=== PATIENT | male | born 1965 | race Caucasian/White ===

== ENCOUNTER → 2016-09-27 | Outpatient (CLI) | payer OTHER ==
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
== END ==
LOC: M WUC 15:25
PROVIDERS: ATTEND Physician Assistant
DX: S13.4XXA Sprain of ligaments of cervical spine, initial encounter (principal); S40.012A Contusion of left shoulder, initial encounter; S40.011A Contusion of right shoulder, initial encounter; X58.XXXA Exposure to other specified factors, initial encounter; Y92.89 Other specified places as the place of occurrence of the external cause; Y93.89 Activity, other specified; Y99.8 Other external cause status

== ENCOUNTER → 2017-07-21 | Outpatient (REF) | payer OTHER ==
[2017-07-21 11:01] LABS: HEMATOCRIT 43.5 % (42.0-52.0); HEMOGLOBIN 14.6 g/dl (13.5-17.5); MEAN CORPUSCULAR HEMOGLOBIN 28.9 pg (27.0-33.0); MEAN CORPUSCULAR HGB CONC 33.6 g/dl (32.0-36.5); MEAN CORPUSCULAR VOLUME 86.1 fl (80.0-96.0); PLATELET COUNT, AUTOMATED 244 10^3/uL (150-450); RED BLOOD COUNT 5.05 10^6/uL (4.30-6.10); WHITE BLOOD COUNT 5.8 10^3/uL (4.0-10.0)
[2017-07-21 11:28] LABS: ALBUMIN 3.8 GM/DL (3.2-5.2); ALBUMIN/GLOBULIN RATIO 1.06 (1.00-1.93); ALKALINE PHOSPHATASE 75 U/L (45-117); ALT/SGPT 40 U/L (12-78); ANION GAP 6 MEQ/L (8-16); AST/SGOT 21 U/L (7-37); BILIRUBIN,TOTAL 0.6 MG/DL (0.2-1.0); BLOOD UREA NITROGEN 21 MG/DL (7-18); CALCIUM LEVEL 8.8 MG/DL (8.5-10.1); CARBON DIOXIDE LEVEL 28 MEQ/L (21-32); CHLORIDE LEVEL 107 MEQ/L (98-107); CHOLESTEROL LEVEL 224 MG/DL (<200); CHOLESTEROL RISK RATIO 4.392 (<5); CREATININE FOR GFR 1.09 MG/DL (0.70-1.30); GLOMERULAR FILTRATION RATE > 60.0 (>56); GLUCOSE, FASTING 85 MG/DL (70-100); HDL CHOLESTEROL 51 MG/DL (>40); LDL CHOLESTEROL 137.8 MG/DL (<100); NON-HDL-C 173 MG/DL; POTASSIUM SERUM 4.2 MEQ/L (3.5-5.1); SODIUM LEVEL 141 MEQ/L (136-145); THYROID STIMULATING HORMONE 0.111 uIU/ML (0.358-3.740); TOTAL PROTEIN 7.4 GM/DL (6.4-8.2); TRIGLYCERIDES LEVEL 176 MG/DL (<150)
== END ==
LOC: M LABDRAW1 08:26
DX: G47.33 Obstructive sleep apnea (adult) (pediatric) (principal); E78.00 Pure hypercholesterolemia, unspecified

== ENCOUNTER 2017-11-03 08:26 | Day surgery (SDC) | payer OTHER ==
[2017-11-03] MEDS: NS 1,000 ML IV (09:24)
[2017-11-03] MEDS ORDERED: PROPOFOL 500 MG/50 ML VIAL As Ordered (10:03)
[2017-11-03] MEDS ORDERED: LIDOCAINE 2% INJ 100 MG/5 ML SDV (FOR ANES.) As Ordered (10:03)
== END 2017-11-03 10:47 | disposition home or self-care (01) ==
LOC: M OPP 08:26
DX: Z12.11 Encounter for screening for malignant neoplasm of colon (principal); D12.3 Benign neoplasm of transverse colon; K62.1 Rectal polyp; K64.8 Other hemorrhoids; R00.8 Other abnormalities of heart beat; M19.90 Unspecified osteoarthritis, unspecified site; G47.30 Sleep apnea, unspecified; R06.83 Snoring
CPT/HCPCS: 45385

== ENCOUNTER → 2018-01-08 | Outpatient (CLI) | payer OTHER ==
[2018-01-08 18:15] LABS: ALBUMIN 4.1 GM/DL (3.2-5.2); ALBUMIN/GLOBULIN RATIO 1.05 (1.00-1.93); ALKALINE PHOSPHATASE 84 U/L (45-117); ALT/SGPT 26 U/L (12-78); ANION GAP 7 MEQ/L (8-16); AST/SGOT 19 U/L (7-37); BILIRUBIN,TOTAL 0.5 MG/DL (0.2-1.0); BLOOD UREA NITROGEN 20 MG/DL (7-18); CALCIUM LEVEL 8.8 MG/DL (8.5-10.1); CARBON DIOXIDE LEVEL 29 MEQ/L (21-32); CHLORIDE LEVEL 102 MEQ/L (98-107); CHOLESTEROL LEVEL 236 MG/DL (<200); CHOLESTEROL RISK RATIO 4.068 (<5); CREATININE FOR GFR 1.06 MG/DL (0.70-1.30); FREE T4 0.99 NG/DL (0.76-1.46); GLOMERULAR FILTRATION RATE > 60.0 (>56); GLUCOSE, FASTING 71 MG/DL (70-100); HDL CHOLESTEROL 58 MG/DL (>40); LDL CHOLESTEROL 157 MG/DL (<100); NON-HDL-C 178 MG/DL; POTASSIUM SERUM 4.3 MEQ/L (3.5-5.1); SODIUM LEVEL 138 MEQ/L (136-145); TRIGLYCERIDES LEVEL 103 MG/DL (<150)
[2018-01-11 00:06] LABS: THYROID STIMULATING IMMUNOGLOB <0.10 IU/L (0.00-0.55)
== END ==
LOC: M WUC 15:10
DX: E78.00 Pure hypercholesterolemia, unspecified (principal); R94.6 Abnormal results of thyroid function studies
CPT/HCPCS: 84443

== ENCOUNTER → 2019-09-18 | Outpatient (REF) | payer OTHER ==
[2019-09-18 13:09] LABS: HEMATOCRIT 44.2 % (42.0-52.0); HEMOGLOBIN 14.8 g/dl (13.5-17.5); MEAN CORPUSCULAR HEMOGLOBIN 29.5 pg (27.0-33.0); MEAN CORPUSCULAR HGB CONC 33.5 g/dl (32.0-36.5); MEAN CORPUSCULAR VOLUME 88.2 fl (80.0-96.0); PLATELET COUNT, AUTOMATED 238 10^3/uL (150-450); RED BLOOD COUNT 5.01 10^6/uL (4.30-6.10); WHITE BLOOD COUNT 5.4 10^3/uL (4.0-10.0)
[2019-09-18 13:40] LABS: ALBUMIN 3.8 GM/DL (3.2-5.2); ALT/SGPT 23 U/L (12-78); BILIRUBIN,TOTAL 0.7 MG/DL (0.2-1.0); BLOOD UREA NITROGEN 22 MG/DL (7-18); CALCIUM LEVEL 8.7 MG/DL (8.5-10.1); CARBON DIOXIDE LEVEL 28 MEQ/L (21-32); CHLORIDE LEVEL 105 MEQ/L (98-107); CHOLESTEROL LEVEL 219 MG/DL (<200); CHOLESTEROL RISK RATIO 4.132 (<5); CREATININE FOR GFR 1.05 MG/DL (0.70-1.30); GLOMERULAR FILTRATION RATE > 60.0 (>56); GLUCOSE, FASTING 68 MG/DL (70-100); HDL CHOLESTEROL 53 MG/DL (>40); LDL CHOLESTEROL 144 MG/DL (<100); NON-HDL-C 166 MG/DL; POTASSIUM SERUM 5.1 MEQ/L (3.5-5.1); SODIUM LEVEL 136 MEQ/L (136-145); TESTOSTERONE 402 NG/DL (241-827); TOTAL PROTEIN 7.3 GM/DL (6.4-8.2); TRIGLYCERIDES LEVEL 108 MG/DL (<150)
== END ==
LOC: M SFHCPLAZ 09:56
PROVIDERS: ATTEND Internal Medicine
DX: E78.00 Pure hypercholesterolemia, unspecified (principal); R53.82 Chronic fatigue, unspecified; R94.6 Abnormal results of thyroid function studies; Z12.5 Encounter for screening for malignant neoplasm of prostate

== ENCOUNTER → 2019-10-21 | Outpatient (CLI) | payer OTHER | LOC: M LABSMTC 14:26 | PROVIDERS: ATTEND Family Medicine | DX: Z20.828 Contact with and (suspected) exposure to other viral communicable diseases (principal); Z11.59 Encounter for screening for other viral diseases ==

== ENCOUNTER 2020-05-05 07:17 | Emergency (ER) | payer OTHER ==
[2020-05-05] MEDS ORDERED: NORCO, ANEXSIA 5/325MG TABLET (HYDROcodone/ACETAMINOPHEN) PO ONE (07:45)
--- NOTE | 2020-05-05 08:28 | REP ---
INDICATION: slip and fall, medial pain "felt like it dislocated". COMPARISON: None. TECHNIQUE: Five views are presented. The study does not include a sunrise view. FINDINGS: Five views of the right knee demonstrate patellofemoral osteoarthritic spurring. There is minimal lateral compartment spurring. Joint spaces are preserved.. No fracture or subluxation is seen. No opaque foreign body noted. IMPRESSION: Patellofemoral and lateral compartment osteoarthritic spurring. No fracture seen. The study does not include a sunrise view.. <Electronically signed by Peña Burnett > 05/05/20 [id number]
--- OUTSIDE RECORDS SUMMARY | 2020-05-05 08:49 | CCD | Continuity of Care Document ---
Author Author Vinod MULLEN DPBecky Organization Unknown Address [address] [place] [address] [address] [place] [address] Phone [phone] Problems Active Problems Provider Date Plantar fascial fibromatosis Chadd Mullen DPM Onset: Pronation Chadd Mullen DPM Onset: 02/04/2020 Other synovitis and tenosynovitis, right ankle and foot Andr jonnathan Mullen DPM Onset: 02/04/2020 Social History Type Date Description Comments Sex Unknown ETOH Use Occasionally consumes alcohol Tobacco Use Start: Unknown Patient has never smoked Allergies, Adverse Reactions, Alerts Description No Known Drug Allergies Medications Active Medications SIG Qnty Indications Ordering Provide r Date Voltaren 1% Gel apply to sore ankle 2-3 times 100gm Chadd Mullen DPM 04/01/2020 History Medications No Active Medications Unknown 05/2019 - 04/01/2020 Immunizations Description No Information Available Vital Signs Date Vital Result Comment 02/03/2020 8:08am Height 72 inches 6'0" Weight 210.00 lb BP Systolic 104 mmHg BP Diastolic 72 mmHg Heart Rate 91 /min BMI (Body Mass Index) 28.5 kg/m2 11/11/2016 3:49pm Height 71 inches 5'11" Weight 210.00 lb BP Systolic 118 mmHg BP Diastolic 68 mmHg Heart Rate 70 /min BMI (Body Mass Index) 29.3 kg/m2 Results Description No Information Available Procedures Description No Information Available Medical Devices Description No Information Available Encounters Type Date Location Provider Dx Diagnosis Office Visit 04/01/2020 9:15a [place] Chadd Mullen DPM M65.879 Other synovitis and tenosynovitis, unsp ankle and foot Office Visit 02/03/2020 8:00a [facility] Chadd Mullen, ANNE M21.6x1 Other acquired deformities of right foot M21.6x9 Other acquired deformities o f unspecified foot M21.6x2 Other acquired deformities o f left foot M72.2 Plantar fascial fibromatosis M72.2 Plantar fascial fibromatosis M65.871 Other synovitis and tenosyno vitis, right ankle and foot Assessments Date Code Description Provider 04/01/2020 M65.879 Other synovitis and tenosynovitis, unspecified ankle and foot Chadd Mullen, DPBecky 02/03/2020 M21.6x1 Other acquired deformities of ri ght foot Chadd Mullen, ANNE 02/03/2020 M21.6x9 Other acquired deformities of un specified foot Chadd Mullen, ANNE 02/03/2020 M21.6x2 Other acquired deformities of le ft foot Chadd Mullen, ANNE 02/03/2020 M72.2 Plantar fascial fibromatosis And rew Miriam Mullen, ANNE 02/03/2020 M72.2 Plantar fascial fibromatosis And rew Miriam Mullen, DPBecky 02/03/2020 M65.871 Other synovitis and tenosynoviti s, right ankle and foot Chadd Mullen DPM Plan of Treatment No Information Available Functional Status Description No Information Available Mental Status Description No Information Available Referrals Description No Information Available
--- OUTSIDE RECORDS SUMMARY | 2020-05-05 08:49 | CCD | Continuity of Care Document ---
Author Author Vinod COLLAZO PA-C Organization Unknown Address [address] [place] [address] Phone [phone] Care Team Providers Care Tree Puller Name Role Phone Segundo Rossi AUTM [phone] Mykel Ramirez MD AUTM [phone] Problems Description No Information Available Social History Type Date Description Comments Sex Unknown ETOH Use Occasionally consumes alcohol Tobacco Use Start: Unknown Patient has never smoked Allergies, Adverse Reactions, Alerts Description No Known Drug Allergies Medications Active Medications SIG Qnty Indications Ordering Provide r Date Euflexxa 20mg/2ML Soln Prefill Syr juaquin chu knee euflexxa #1 03/11/2020 klf/chely chu knee #2 03/18/2020 klf/bc, chu knee #3 03/30/2020 klf/chely Chadd Lopez MD 020 Euflexxa 20mg/2ML Soln Prefill Syr juaquin chu knee #1 07/13/18 klf/cp chu knee 07/24/18 klf/rs, chu knee #3 klf/ng 08/01/18. Mauricio Cortez MD 07/13/2018 Immunizations Description No Information Available Vital Signs Date Vital Result Comment 03/18/2020 3:34pm Body Temperature 96.6 F 02/07/2020 3:34pm Body Temperature 96.8 F Results Description No Information Available Procedures Date Code Description Status 03/30/2020 Inject/Drain Joint/Bursa Major C ompleted 03/18/2020 Inject/Drain Joint/Bursa Major C ompleted 03/18/2020 Inject/Drain Joint/Bursa Major C ompleted 03/11/2020 Inject/Drain Joint/Bursa Major C ompleted 03/11/202095300 Inject/Drain Joint/Bursa Major C ompleted 02/07/2020 94355 X-Ray Knee Complete W/Obliques & Tunnel And/Or Standing Views Completed 02/07/2020 04566 X-Ray Knee Complete W/Obliques & Tunnel And/Or Standing Views Completed Medical Devices Description No Information Available Encounters Type Date Location Provider Dx Diagnosis Office Visit 03/30/2020 2:00[place] Kaelyn L. Frankie PA-C M17.0 Bilateral primary osteoarthritis of knee Office Visit 03/18/2020 3:15p [place] Kaelyn L. Frankie PA-C M17.0 Bilateral primary osteoarthritis of knee Office Visit 03/11/2020 3:15p [place] Kaelyn L. Frankie PA-C M17.0 Bilateral primary osteoarthritis of knee Office Visit 02/07/2020 3:15p [place] Kaelyn L. Frankie PA-C M17.0 Bilateral primary osteoarthritis of knee Assessments Date Code Description Provider 03/30/2020 M17.0 Bilateral primary osteoarthritis of knee Kaelyn L. Frankie PA-C 03/18/2020 M17.0 Bilateral primary osteoarthritis of knee Kaelyn L. Frankie PA-C 03/11/2020 M17.0 Bilateral primary osteoarthritis of knee Kaelyn L. Frankie PA-C 02/07/2020 M17.0 Bilateral primary osteoarthritis of knee Kaelyn L. Frankie PA-C Plan of Treatment No Information Available Functional Status Description No Information Available Mental Status Description No Information Available Referrals Refer to Dr Reason for Referral Status Appt Date Kaelyn Collazo PA-C Bilateral knee Euflexxa-no a uthorization req per Jolynn Ref# [id number] Created [address] [facility] [address] [place] [address] [phone]
--- OUTSIDE RECORDS SUMMARY | 2020-05-05 08:49 | CCD | Continuity of Care Document ---
Author Author Vinod COLLAZO PA-C Organization Unknown Address [address] [place] [address] Phone [phone] Care Team Providers Care Targeteer Name Role Phone Segundo Rossi AUTM [phone] Mykel Ramirez MD AUTM [phone] Problems Description No Information Available Social History [...] ompleted 03/11/2020 Inject/Drain Joint/Bursa Major C ompleted 03/11/202002086 Inject/Drain Joint/Bursa Major C ompleted 02/07/2020 03290 X-Ray Knee Complete W/Obliques & Tunnel And/Or Standing Views Completed 02/07/2020 27958 X-Ray Knee Complete W/Obliques & Tunnel And/Or Standing Views Completed Medical Devices Description No Information Available Encounters Type Date Location Provider Dx Diagnosis Office Visit 03/30/2020 2:00p [place] Kaelyn L. Frankie PA-C M17.0 Bilateral primary osteoarthritis of knee Office Visit 03/18/2020 3:15p [place] Kaelyn L. Frankie PA-C M17.0 Bilateral primary osteoarthritis of knee Office Visit 03/11/2020 3:15p [place] Kaelyn L. Frankie PA-C M17.0 Bilateral primary osteoarthritis of knee Office Visit 02/07/2020 3:15p [place] Kaelyn L. Frankie PA-C M17.0 Bilateral primary osteoarthritis of knee Assessments Date Code Description Provider 03/30/2020 M17.0 Bilateral primary osteoarthritis of knee Kaelyn L. Frankie, PA-C 03/18/2020 M17.0 Bilateral primary osteoarthritis of knee Kaelyn L. Frankie PA-C 03/11/2020 M17.0 Bilateral primary osteoarthritis of knee Kaelyn L. Frankie PA-C 02/07/2020 M17.0 Bilateral primary osteoarthritis of knee Kaelyn L. Frankie PA-C Plan of Treatment Future Appointment(s):* 04/01/2020 3:00 pm - Kaelyn Collazo PA-C at [place] Functional Status Description No Information Available Mental Status Description No Information Available Referrals Refer to Reason for Referral Status Appt Date Kaelyn Collazo PA-C Bilateral knee Euflexxa-no a uthorization req per Jolynn Ref# [id number] Created [address] [place] [address] [address] [place] [address] [phone]
--- OUTSIDE RECORDS SUMMARY | 2020-05-05 08:50 | CCD ---
Author Author [facility] Organization [facility] Address Unknown Phone Unavailable Care Team Providers Care Automobile Service Writer Name Role Phone Mykel Ramirez Unavailable PROBLEMS Type Condition ICD9-CM Code MAH26-CQ Code Onset Dates Condition S tatus SNOMED Code Notes Problem History of adenomatous polyp of colon Z86.010 Ac tive 102541045 He had adenomatous polyps in November 2017 and a 5 year follow-up is likely to occur. Problem Chronic fatigue R53.82 Active 36697745 He has some fatigue and erectile dysfunction. Testosterone level is ordered and normal. PDE 5 inhibitor was prescribed. Problem Dyshidrotic eczema L30.1 Active 465873077 He has dyshidrotic eczema of the feet and I recommended triamcinolone cream in the past. Assistant Center Manager has diagnosed it as a fungal infection and he is on therapy with Lamisil intermittently, apparently. Problem Obstructive sleep apnea G47.33 Active 87352815 On CPAP +6cm H2O since 04/2011--has had tremendous benefit from this. Problem Hypercholesterolemia E78.00 Active 69550781 Li pids have been suboptimally controlled in the past, and remain suboptimally controlled as of September 2019. A radionuclide stress test was normal in June 2013. ACC cardiovascular calculator was performed on his 2017 values--less than 4% 10-year risk. He is going to work on diet and exercise in that regard. Problem Low TSH level R94.6 Active 972409752 He has a history of a prior low TSH. He is not symptomatic. This was rechecked in January 2018 and again in September 2019 and his thyroid function tests were normal. ALLERGIES No Known Allergies ENCOUNTERS from 1965 to 2020-02-11 Encounter Location Date Provider Diagnosis [facility] [place] [address] [place] [address] Jan, Mykel Ramirez IMMUNIZATIONS Vaccine Route Administration Date Status TD Adult 0.5mL (Tetanus) Unknown Feb 10, 2004 Adminis tered SOCIAL HISTORY Tobacco Use: Social History Observation Description Date Details (start date - stop date) Never Smoker Sex Assigned At : Social History Observation Description Sex Assigned At Unknown Education: Question Answer Notes Level of Education: Professional Schools/Masters/PhD Audit Question Answer Notes Interpretation: Alcohol Education Total Score: 2 Language: Question Answer Notes Languages spoken: Surinamese Nondenominational: Question Answer Notes Nondenominational No spiritism beliefs that would impact health care. Sexual Hx: Question Answer Notes Had sex in the last 12 months (vaginal, oral, or anal)? Yes Have you ever had an STD? No with Women only Drug and Alcohol Question Answer Notes Total Score: 0 Interpretation: No problems reported Alcohol Screening: Question Answer Notes Did you have a drink containing alcohol in the past year? Ye s Points 2 Interpretation Negative How often did you have six or more drinks on one occas ion in the past year? Never (0 points) How many drinks did you have on a typica l day when you were drinking in the past year? 1 or 2 (0 points) How often did you have a drink containing alcohol in t he past year? Two to four times a month (2 points) BMI Care Goal Follow-Up Question Answer Notes Above Normal BMI Follow-Up Giving encouragement to exercise Tobacco Use: Question Answer Notes Are you a: never smoker never smoker REASON FOR REFERRAL No Information VITAL SIGNS No information MEDICATIONS Medication SIG (Take, Route, Frequency, Duration) Start Date En d Date Status Triamcinolone Acetonide 0.1 % 1 application to rash on feet Externally Twice a day for 90 day(s) Jul, Active Sildenafil Citrate 100 MG 1 tablet as needed Orally Once a d ay for 10 days Sep, Active PROCEDURES No Information RESULTS No Results REASON FOR VISIT PA sildenafil 100mg tab MEDICAL (GENERAL) HISTORY Type Description Date Medical History Hypercholesterolemia Medical History Obstructive sleep apnea Medical History Dyshidrotic eczema Medical History History of adenomatous polyp of colon Surgical History Appendectomy 01/1999 Surgical History Vasectomy 2010 Surgical History Colonoscopy--adenomatous polyps Hospitalization History [facility]-Chest congestion 06/29/2017 Goals Section No Information Health Concerns No Information MEDICAL EQUIPMENT No Information MENTAL STATUS No Information FUNCTIONAL STATUS No Information ASSESSMENTS No Information PLAN OF TREATMENT Medication Medication Name Sig Start Date Stop Date Triamcinolone Acetonide 0.1 % 1 application to rash on feet Externally Twice a day for 90 day(s) Jul, Sildenafil Citrate 100 MG 1 tablet as needed Orally Once a d ay for 10 days Sep, Next Appt Details Provider Name:Mykel Ramirez, 2020-10-07 07 :30:00 AM, [address] [place] [address], [phone], Insurance Providers Payer Name Payer Address Payer Phone Insured Name Patient Relati onship to Insured Coverage Start Date Coverage End Date [facility] [address] [facility] [phone] EZIO HOWE
--- OUTSIDE RECORDS SUMMARY | 2020-05-05 08:50 | CCD | Continuity of Care Document ---
Author Author Vinod COLLAZO PA-C Organization Unknown Address [address] [place] [address] Phone [phone] Care Team Providers Care Senior Sharepoint Architect Name Role Phone Segundo Rossi AUTM [phone] Mykel Ramirez MD AUTM [phone] Problems Description No Information Available Social History [...] Available Vital Signs Date Vital Result Comment 02/07/2020 3:34pm Body Temperature 96.8 F 01/05/2017 8:18am Body Temperature 97.7 F Height 71 inches 5'11" Weight 216.00 lb BMI (Body Mass Index) 30.1 kg/m2 Results Description No Information Available Procedures Date Code Description Status 02/07/2020 64860 X-Ray Knee Complete W/Obliques & Tunnel And/Or Standing Views Completed 02/07/2020 05668 X-Ray Knee Complete W/Obliques & Tunnel And/Or Standing Views Completed Medical Devices Description No Information Available Encounters Type Date Location Provider Dx Diagnosis Office Visit 02/07/2020 3:15p [place] Kaelyn Collazo PA-C M17.0 Bilateral primary osteoarthritis of knee Assessments Date Code Description Provider 02/07/2020 M17.0 Bilateral primary osteoarthritis of knee Kaelyn Collazo PA-C Plan of Treatment Future Appointment(s):* 02/14/2020 2:30 pm - Louise Tee MD at [place] 02/07/2020 - Kaelyn Collazo PA-C* M17.0 Bilateral primary osteoarthritis of knee * New Orders:* Euflexxa Chu Knee Injection, Ordered: 02/07/20 * Follow up:* prn Functional Status Description No Information Available Mental Status Description No Information Available Referrals Description No Information Available
--- OUTSIDE RECORDS SUMMARY | 2020-05-05 08:50 | CCD | Continuity of Care Document ---
Author Author Vinod COLLAZO PA-C Organization Unknown Address [address] [place] [address] Phone [phone] Care Team Providers Care Lab Manager Name Role Phone Segundo Rossi AUTM [phone] Mykel Ramirez MD AUTM [phone] Problems Description No Information Available Social History Type Date Description Comments Sex Unknown ETOH Use Occasionally consumes alcohol Tobacco Use Start: Unknown Patient has never smoked Allergies, Adverse Reactions, Alerts Description No Known Drug Allergies Medications Active Medications SIG Qnty Indications Ordering Provide r Date Euflexxa 20mg/2ML Soln Prefill Syr juaquin chu knee euflexxa #1 03/11/2020 klf/chely Kris Collazo MD 03/11/2020 Euflexxa 20mg/2ML Soln Prefill Syr juaquin chu [...] Information Available Procedures Date Code Description Status 03/11/2020 Inject/Drain Joint/Bursa Major C ompleted 02/07/2020 32460 X-Ray Knee Complete W/Obliques & Tunnel And/Or Standing Views Completed 02/07/2020 74888 X-Ray Knee Complete W/Obliques & Tunnel And/Or Standing Views Completed Medical Devices Description No Information Available Encounters Type Date Location Provider Dx Diagnosis Office Visit 03/11/2020 3[place] Collazo M17.0 Bilateral primary osteoarthritis of knee Office Visit 02/07/2020 3[place] Collazo M17.0 Bilateral primary osteoarthritis of knee Assessments Date Code Description Provider 03/11/2020 M17.0 Bilateral primary osteoarthritis of knee Kaelyn Hopkins RICHARD Collazo 02/07/2020 M17.0 Bilateral primary osteoarthritis of knee Kaelyn L. RICHARD Collazo Plan of Treatment No Information Available Functional Status Description No Information Available Mental Status Description No Information Available Referrals Refer to Dr Reason for Referral Status Appt Date Kaelyn Collazo PA-C Bilateral knee Euflexxa-no a uthorization req per Jolynn Ref# [id number] Created [address] [facility] [address] [place] [address] [phone]
--- OUTSIDE RECORDS SUMMARY | 2020-05-05 08:50 | CCD | Continuity of Care Document ---
Author Author Vinod COLLAZO PA-C Organization Unknown Address [address] [place] [address] Phone [phone] Care Team Providers Care Department Coordinator Name Role Phone Segundo Rossi AUTM [phone] Mykel Ramirez MD AUTM [phone] Problems Description No Information Available Social History Type Date Description Comments Sex Unknown ETOH Use Occasionally consumes alcohol Tobacco Use Start: Unknown Patient has never smoked Allergies, Adverse Reactions, Alerts Description No Known Drug Allergies Medications Active Medications SIG Qnty Indications Ordering Provide r Date Euflexxa 20mg/2ML Soln Prefill Syr juaquin chu knee euflexxa #1 03/11/2020 klf/chely chu knee #2 03/18/2020 klf/bc Chadd Lopez MD 03/11/2020 Euflexxa 20mg/2ML Soln Prefill Syr juaquin chu knee #1 07/13/18 klf/cp chu knee 07/24/18 klf/rs, chu knee #3 klf/ng 08/01/18. Mauricio Cortez MD 07/13/2018 Immunizations Description No Information Available Vital Signs Date Vital Result Comment 03/18/2020 3:34pm Body Temperature 96.6 F 02/07/2020 3:34pm Body Temperature 96.8 F Results Description No Information Available Procedures Date Code Description Status 03/18/2020 Inject/Drain Joint/Bursa Major C ompleted 03/11/2020 Inject/Drain Joint/Bursa Major C ompleted 03/11/2020 Inject/Drain Joint/Bursa Major C ompleted 02/07/2020 11887 X-Ray Knee Complete W/Obliques & Tunnel And/Or Standing Views Completed 02/07/2020 15020 X-Ray Knee Complete W/Obliques & Tunnel And/Or Standing Views Completed Medical Devices Description No Information Available Encounters Type Date Location Provider Dx Diagnosis Office Visit 03/18/2020 3:15p [place] Kaelyn Bustos. Frankie PA-C M17.0 Bilateral primary osteoarthritis of knee Office Visit 03/11/2020 3:15p [place] Kaelyn L. Frankie PA-C M17.0 Bilateral primary osteoarthritis of knee Office Visit 02/07/2020 3:15p [place] Kaelyn Bustos. Frankie PA-C M17.0 Bilateral primary osteoarthritis of knee Assessments Date Code Description Provider 03/18/2020 M17.0 Bilateral primary osteoarthritis of knee Kaelyn L. Frankie PA-C 03/11/2020 M17.0 Bilateral primary osteoarthritis of knee Kaelyn L. Frankie PA-C 02/07/2020 M17.0 Bilateral primary osteoarthritis of knee Kaelyn L. Frankie, PA-C Plan of Treatment Future Appointment(s):* 04/01/2020 3:00 pm - Kaelyn Collazo PA-C at [place] * 03/30/2020 2:00 pm - Kaelyn Collazo PA-C at [place] Functional Status Description No Information Available Mental Status Description No Information Available Referrals Refer to Dr Reason for Referral Status Appt Date Kaelyn Collazo PA-C Bilateral knee Euflexxa-no a uthorization req per Jolynn Ref# [id number] Created [facility] [address] [place] [address] [phone]
--- OUTSIDE RECORDS SUMMARY | 2020-05-05 08:50 | CCD ---
Continuity of Care Document (CCD) Created on: 02/19/2020 DuncanJaleelnorman Bustos External Reference #: [id number] : [id number] Sex: Male Author Author Vinod COLLAZO PA-C Organization Unknown Address [address] [place] [address] Phone [phone] Care Team Providers Care Fermentologist Name Role Phone Segundo Rossi AUTM [phone] Mykel Ramirez MD AUTM [phone] Problems Description No Information Available Social History [...] Available Procedures Date Code Description Status 02/07/2020 24751 X-Ray Knee Complete W/Obliques & Tunnel And/Or Standing Views Completed 02/07/2020 78515 X-Ray Knee Complete W/Obliques & Tunnel And/Or Standing Views Completed Medical Devices Description No Information Available Encounters Type Date Location Provider Dx Diagnosis Office Visit 02/07/2020 3:15p [place] Kaelyn Collazo PA-C M17.0 Bilateral primary osteoarthritis of knee Assessments Date Code Description Provider 02/07/2020 M17.0 Bilateral primary osteoarthritis of knee Kaelyn Collazo PA-C Plan of Treatment Future Appointment(s):* 03/11/2020 3:15 pm - Kaelyn Collazo PA-C at [place] 02/07/2020 - Kaelyn Collazo PA-C* M17.0 Bilateral primary osteoarthritis of knee * Follow up:* prn Functional Status Description No Information Available Mental Status Description No Information Available Referrals Refer to Dr Reason for Referral Status Appt Date Kaelyn Collazo PA-C Bilateral knee Euflexxa-no a uthorization req per Jolynn Ref# [id number] Created [address] [facility] [address] [place] [address] [phone]
--- OUTSIDE RECORDS SUMMARY | 2020-05-05 08:50 | CCD ---
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 13 2019 6:20PM EST (Author) Name Value Range Interpretation Code Description Data Brenda rce(s) Supporting Document(s) ID Date Data Source [id number] 10/21/2019 01:00:00 PM EDT [facility] Name Value Range Interpretation Code Description Data Brenda rce(s) Supporting Document(s) SARS coronavirus 2 RNA [facility] This lab was ordered by [facility] and reported by [facility]. ID Date Data Source [id number] 07/01/2019 11:10:34 AM EDT [facility] PCName: Kellen AlvaresOB: 1965Provider: Aristeo Suero: 07/01/2019 Results/DataXRays were ordered, obtained and interpreted today in the office. Indication: pain/dysfunction. Side: Right Site: Ankle Views: 3 Views AP/Lateral, Mortise Findings: no new fractures or dislocations, the joint remains reduced, No signs of charcot, deformity or event. Assessment 1. Right ankle pain (719.47) (M25.571) Plan 1. X-Ray I Ankle - 3 views (XRays were ordered, obtained and interpreted today in the office. Indication: pain/dysfunction.); Status:Complete; Done: 01Jul2019 Perform:SOS22; Due:47Fam2312; Last Updated By:Sara Richey; 07/01/2019 10:23:21 AM;Ordered; For:Right ankle pain; Ordered By:Armin Suero;Weight Bearing Status : Weight bearingLaterality: : Right AssessmentRight peroneal tendinitisRight lateral ankle painTeacher, graduate of [employer] reports pain, really over the last 2-3 months. He feels that it may have been related to overdoing it. 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 However his bilateral knee symptoms have become more significant over the last 2-3 months. Aching throbbing. Worse with standing weightbearing. Better with inversion, and level ground. Nothing makes it all the way better. He's been less active, during the [place] virus situation, and in general feels quite a bit better.On exam, he is tender over the peroneal tendons. There is fullness there. His tenderness is maximal, just distal to the lateral malleolus. He has [address] out [address] rength. No instability of his ankle, more the peroneal tendons.I believe he has peroneal tendinitis. There may be a chance of a tear, or degenerative tearing, given his story and history. I see no sign of stress fracture by x-ray, or anything that needs urgent intervention.I recommend conservative management at present,I discussed with the patient the importance of low-impact exercise to minimize foot and ankle related pain. This involves activity that does not include repetitive heel strike and repetitive loading/stress which tends to magnify and exacerbate foot and ankle pain. I recommend, in general, biking, stationary, recumbent, swimming, rowing, elliptical training as a general rule. Running, jumping, and excessive walking may exacerbate foot and ankle pain and discomfort.Hopefully this settles down over the next 2 or 3 months one we are all less busy. However, if he still has pain, hasn't improved over the course of the next 2 or 3 months, then I recommend an MRI of his ankle to assess the peroneal tendons.I offered him a cortisone shot, but he doesn't like needles, so we'll defer on that. He reports he has modified activities, taken Tylenol and/or growth in, and at present is going to nurse things along and see how he does. Signatures Electronically signed by : Armin Suero M.D.; Jul 01 2019 11:10AM EST (Author) Name Value Range Interpretation Code Description Data Brenda rce(s) Supporting Document(s) Procedure Social History Code Duration Value Status Description Data Source(s ) Smoking 09/18/2019 12:00:00 AM EDT Never Smoker completed Never S moker eCW1 ([facility]) Smoking 09/18/2019 12:00:00 AM EDT Never Smoker completed Never S moker eCW1 ([facility]) Smoking 08/22/2019 12:00:00 AM EDT Patient has never smoked co mpleted Patient has never smoked MEDENT ([facility], ) Vital Signs ID Date Data Source UNK Name Value Range Interpretation Code Description Data Source(s) Body temperature 96.6 [degF] 96.6 [degF] MEDENT ([facility]) Body temperature 96.8 [degF] 96.8 [degF] MEDENT ([facility]) Systolic blood pressure 104 mm[Hg] 104 mm[Hg] M EDENT ([facility] Body weight 210.00 [lb_av] 210.00 [lb_av] MEDEN T ([facility] Body height 72 [in_i] 72 [in_i] MEDENT ([facility] 6'0" Body mass index (BMI) [Ratio] 28.5 kg/m2 28.5 k g/m2 [facility] ([facility] Heart rate 91 /min 91 /min [facility] ([facility] Diastolic blood pressure 72 mm[Hg] 72 mm[Hg] MED[facility] ([facility] Body weight 98.942 kg 98.942 kg MEDENT ([facility], ) Body mass index (BMI) [Ratio] 31.3 kg/m2 31.3 k g/m2 [facility] Body weight 218.12 [lb_av] 218.12 [lb_av] KAYLA T ([facility]) Body height 70 [in_i] 70 [in_i] [facility] ([facility]) 5'10" Body temperature 98.4 [degF] 98.4 [degF] [facility] ([facility]) Oxygen saturation in Arterial blood by Pulse oximetry 97 % 97 % [facility] ([facility]) Heart rate 73 /min 73 /min [facility] ([facility]) Diastolic blood pressure 74 mm[Hg] 74 mm[Hg] [facility] ([facility]) Systolic blood pressure 118 mm[Hg] 118 mm[Hg] M [facility] ([facility]) Patient Treatment Plan of Care Planned Activity Planned Date Details Description Data Source (s) sildenafil 100 MG Oral Tablet 09/18/2019 12:00:00 AM EDT eCW1 ([facility]) sildenafil 100 MG Oral Tablet 09/18/2019 12:00:00 AM EDT eCW1 ([facility])
--- OUTSIDE RECORDS SUMMARY | 2020-05-05 08:50 | CCD | Continuity of Care Document ---
Author Author Vinod COLLAZO PA-C Organization Unknown Address [address] [place] [id number] Phone [phone] Care Team Providers Care Risk Adjustment Specialist Name Role Phone Segundo Rossi AUTM [phone] Mykel Ramirez MD AUTM [phone] Problems Description No Information Available Social History [...] Status 03/11/2020 Inject/Drain Joint/Bursa Major C ompleted 03/11/2020 Inject/Drain Joint/Bursa Major C ompleted 02/07/2020 32454 X-Ray Knee Complete W/Obliques & Tunnel And/Or Standing Views Completed 02/07/2020 79904 X-Ray Knee Complete W/Obliques & Tunnel And/Or Standing Views Completed Medical Devices Description No Information Available Encounters Type Date Location Provider Dx Diagnosis Office Visit 03/11/2020 3:15p [facility] Kaelyn Collazo PA-C M17.0 Bilateral primary osteoarthritis of knee Office Visit 02/07/2020 3:15p [facility] Kaelyn Collazo PA-C M17.0 Bilateral primary osteoarthritis of knee Assessments Date Code Description Provider 03/11/2020 M17.0 Bilateral primary osteoarthritis of knee Kaelyn Collazo PA-C 02/07/2020 M17.0 Bilateral primary osteoarthritis of knee Kaelyn Collazo PA-C Plan of Treatment Future Appointment(s):* 04/01/2020 3:00 pm - Kaelyn Collazo PA-C at [facility] * 03/30/2020 2:00 pm - Kaelyn Collazo PA-C at [facility] Functional Status Description No Information Available Mental Status Description No Information Available Referrals Refer to Dr Reason for Referral Status Appt Date Kaelyn Collazo PA-C Bilateral knee Euflexxa-no a uthorization req per Jol[facility] Ref# [id number] Created [address] [facility] [address] [place] [address] [phone]
[2020-05-05 08:51] VITALS: BP 130/85
== END 2020-05-05 09:00 | disposition home or self-care (01) ==
LOC: M ED 07:17 → EDBD 07:17 → M ED 09:00
DX: S89.91XA Unspecified injury of right lower leg, initial encounter (principal); W00.0XXA Fall on same level due to ice and snow, initial encounter; Y92.018 Other place in single-family (private) house as the place of occurrence of the external cause; I48.91 Unspecified atrial fibrillation; G47.33 Obstructive sleep apnea (adult) (pediatric)

== ENCOUNTER 2020-08-27 16:00 | Outpatient (RCR) | payer OTHER | END 2020-08-31 | LOC: M PT 16:00 | PROVIDERS: ATTEND Orthopaedic Surgery | DX: M25.561 Pain in right knee (principal) ==

== ENCOUNTER 2020-09-17 15:15 | Outpatient (RCR) | payer OTHER | END 2020-09-30 | LOC: M PT 15:15 | PROVIDERS: ATTEND Orthopaedic Surgery | DX: M25.561 Pain in right knee (principal); S86.811D Strain of other muscle(s) and tendon(s) at lower leg level, right leg, subsequent encounter; X58.XXXD Exposure to other specified factors, subsequent encounter ==

== ENCOUNTER 2020-10-29 15:12 | Outpatient (RCR) | payer OTHER | END 2020-10-31 | LOC: M PT 15:12 | PROVIDERS: ATTEND Orthopaedic Surgery | DX: M25.561 Pain in right knee (principal) ==

== ENCOUNTER → 2022-04-12 | Outpatient (CLI) | payer OTHER ==
[2022-04-12 09:38] LABS: HEMATOCRIT 48.5 % (42.0-52.0); HEMOGLOBIN 16.3 g/dl (13.5-17.5); MEAN CORPUSCULAR HEMOGLOBIN 29.7 pg (27.0-33.0); MEAN CORPUSCULAR HGB CONC 33.6 g/dl (32.0-36.5); MEAN CORPUSCULAR VOLUME 88.5 fl (80.0-96.0); PLATELET COUNT, AUTOMATED 247 10^3/uL (150-450); RED BLOOD COUNT 5.48 10^6/uL (4.30-6.10)
[2022-04-12 10:10] LABS: FREE T4 1.25 NG/DL (0.89-1.76); THYROID STIMULATING HORMONE 2.596 uIU/ML (0.55-4.78)
[2022-04-12 10:14] LABS: TOTAL 25(OH) VITAMIN D 25.1 NG/ML (20.0-100.0); VITAMIN B12 LEVEL 581 PG/ML (211-911)
[2022-04-12 10:19] LABS: ALBUMIN 4.3 G/DL (3.2-5.2); ALKALINE PHOSPHATASE 82 U/L (46-116); ALT/SGPT 25 U/L (7.0-40); AST/SGOT 25 U/L (<34); BILIRUBIN,TOTAL 0.6 MG/DL (0.3-1.2); BLOOD UREA NITROGEN 29 MG/DL (9-23); CALCIUM LEVEL 9.2 MG/DL (8.5-10.1); CARBON DIOXIDE LEVEL 28 MMOL/L (20-31); CHLORIDE LEVEL 104 MMOL/L (98-107); CHOLESTEROL LEVEL 244 MG/DL (<200); CHOLESTEROL RISK RATIO 4.62 (<5); CREATININE FOR GFR 1.04 MG/DL (0.70-1.30); GLOMERULAR FILTRATION RATE > 60.0 (>56); GLUCOSE, FASTING 79 MG/DL (60-100); HDL CHOLESTEROL 52.7 MG/DL (>40); LDL CHOLESTEROL 169.9 MG/DL (<100); NON-HDL-C 191 MG/DL; POTASSIUM SERUM 4.5 MMOL/L (3.5-5.1); SODIUM LEVEL 139 MMOL/L (136-145); TOTAL PROTEIN 7.4 G/DL (5.7-8.2); TRIGLYCERIDES LEVEL 107 MG/DL (<150)
[2022-04-12 10:22] LABS: CREATININE, URINE 305.1 MG/DL; MAU/CREAT RATIO 3.6 MCG/MG (0.0-30.0)
[2022-04-12 11:09] LABS: C REACTIVE PROTEIN QUANTITATIV < 0.40 MG/DL (<1.0)
== END ==
LOC: M WUC 08:31
PROVIDERS: ATTEND Internal Medicine Hematology
DX: E78.00 Pure hypercholesterolemia, unspecified (principal); Z12.5 Encounter for screening for malignant neoplasm of prostate
CPT/HCPCS: 36415; 80053; 80061; 82043; 82306; 82607; 83036; 84439; 84443; 85027; 86140; G0103

== ENCOUNTER 2022-05-02 06:53 | Outpatient (RCR) | payer OTHER | END 2022-05-03 | LOC: M PT 06:53 | PROVIDERS: ATTEND Internal Medicine Hematology | DX: M54.42 Lumbago with sciatica, left side (principal) ==

== ENCOUNTER 2023-02-27 06:56 | Day surgery (SDC) | payer OTHER ==
[~2023-02-27] VITALS: Ht 180.3 cm; Wt 104.0 kg
[~2023-02-27 06:56] MED LIST: NS 1,000 ML IV ONE
[2023-02-27] MEDS ORDERED: LIDOCAINE 2% 100MG/5ML SDV (FOR ANES.) As Ordered ONE (08:46)
[2023-02-27] MEDS ORDERED: propofoL 200 MG/20 ML VIAL As Ordered ONE ×2 (08:46→08:56)
[2023-02-27 09:27] VITALS: BP 135/95; O2SAT 99
== END 2023-02-27 09:36 | disposition home or self-care (01) ==
LOC: M OPP 06:56
PROVIDERS: ATTEND Internal Medicine Gastroenterology
DX: Z86.010 Personal history of colon polyps (principal); K63.5 Polyp of colon; K64.8 Other hemorrhoids; G47.30 Sleep apnea, unspecified; M19.90 Unspecified osteoarthritis, unspecified site

== ENCOUNTER → 2023-06-01 | Outpatient (REF) | payer OTHER | LOC: M SFHCPLAZ 12:44 | PROVIDERS: ATTEND Physician Assistant Medical | DX: J06.9 Acute upper respiratory infection, unspecified (principal) ==

== ENCOUNTER 2023-08-29 08:25 | Outpatient (RCR) | payer OTHER | END 2023-09-01 | LOC: M PT 08:25 | PROVIDERS: ATTEND Internal Medicine Hematology | DX: M54.50 Low back pain, unspecified (principal) ==

== ENCOUNTER 2023-09-19 07:00 | Outpatient (RCR) | payer OTHER | END 2023-10-01 | LOC: M PT 07:00 | PROVIDERS: ATTEND Internal Medicine Hematology | DX: M54.50 Low back pain, unspecified (principal) ==

== ENCOUNTER → 2023-09-20 | Outpatient (CLI) | payer OTHER ==
[2023-09-20 15:16] LABS: ALBUMIN 3.7 G/DL (3.2-5.2); ALKALINE PHOSPHATASE 86 U/L (46-116); ALT/SGPT 28 U/L (7.0-40); AST/SGOT 19 U/L (<34); BILIRUBIN,TOTAL 0.5 MG/DL (0.3-1.2); BLOOD UREA NITROGEN 22 MG/DL (9-23); CALCIUM LEVEL 9.2 MG/DL (8.5-10.1); CARBON DIOXIDE LEVEL 28 MMOL/L (20-31); CHLORIDE LEVEL 104 MMOL/L (98-107); CREATININE FOR GFR 1.16 MG/DL (0.70-1.30); GLOMERULAR FILTRATION RATE > 60.0 (>56); GLUCOSE, FASTING 76 MG/DL (60-100); POTASSIUM SERUM 4.4 MMOL/L (3.5-5.1); SODIUM LEVEL 138 MMOL/L (136-145); TOTAL PROTEIN 7.3 G/DL (5.7-8.2)
== END ==
LOC: M PLALAB 12:25
PROVIDERS: ATTEND Physician Assistant Medical
DX: R19.7 Diarrhea, unspecified (principal)

== ENCOUNTER → 2024-03-07 | Outpatient (CLI) | payer OTHER ==
[2024-03-07 10:30] LABS: HEMATOCRIT 46.3 % (42.0-52.0); HEMOGLOBIN 15.6 g/dl (13.5-17.5); MEAN CORPUSCULAR HEMOGLOBIN 29.5 pg (27.0-33.0); MEAN CORPUSCULAR HGB CONC 33.7 g/dl (32.0-36.5); MEAN CORPUSCULAR VOLUME 87.7 fl (80.0-96.0); PLATELET COUNT, AUTOMATED 212 10^3/uL (150-450); RED BLOOD COUNT 5.28 10^6/uL (4.30-6.10); WHITE BLOOD COUNT 5.8 10^3/uL (4.0-10.0)
== END ==
LOC: M PLALAB 08:50
PROVIDERS: ATTEND Physician Assistant Medical
DX: J06.9 Acute upper respiratory infection, unspecified (principal)

== ENCOUNTER → 2024-03-11 | Outpatient (CLI) | payer OTHER | LOC: M WUC 11:19 | PROVIDERS: ATTEND Student in an Organized Health Care Education/Training Program | DX: R05.9 Cough, unspecified (principal) ==

== ENCOUNTER → 2024-03-25 | Outpatient (CLI) | payer OTHER | LOC: M WUC 09:01 | PROVIDERS: ATTEND Nurse Practitioner Family | DX: R91.8 Other nonspecific abnormal finding of lung field (principal); R05.9 Cough, unspecified ==

== ENCOUNTER → 2024-06-03 | Outpatient (CLI) | payer OTHER ==
[2024-06-03 12:50] LABS: BASO # 0.1 10^3/uL (0.0-0.2); BASO % 1.4 % (0.0-1.0); EOS # 0.1 10^3/uL (0.0-0.5); EOS % 2.7 % (0.0-3.0); HEMATOCRIT 47.8 % (42.0-52.0); HEMOGLOBIN 15.8 g/dl (13.5-17.5); MEAN CORPUSCULAR HEMOGLOBIN 29.7 pg (27.0-33.0); MEAN CORPUSCULAR HGB CONC 33.1 g/dl (32.0-36.5); MEAN CORPUSCULAR VOLUME 89.8 fl (80.0-96.0); MONO # 0.5 10^3/uL (0.0-0.8); MONO % 8.9 % (2.0-8.0); NEUTROPHILS # 2.5 10^3/uL (1.5-8.5); NEUTROPHILS % 47.8 % (36.0-66.0); PLATELET COUNT, AUTOMATED 240 10^3/uL (150-450); RED BLOOD COUNT 5.32 10^6/uL (4.30-6.10); WHITE BLOOD COUNT 5.2 10^3/uL (4.0-10.0)
[2024-06-03 13:21] LABS: PSA SCREENING 2.89 NG/ML (< 4.00)
[2024-06-03 13:25] LABS: ALBUMIN 3.8 G/DL (3.2-5.2); ALKALINE PHOSPHATASE 84 U/L (40-129); ALT/SGPT 25 U/L (7.0-40); AST/SGOT 19 U/L (<34); BILIRUBIN,TOTAL 0.6 MG/DL (0.3-1.2); BLOOD UREA NITROGEN 18 MG/DL (9-23); CALCIUM LEVEL 9.1 MG/DL (8.5-10.1); CARBON DIOXIDE LEVEL 28 MMOL/L (20-31); CHLORIDE LEVEL 105 MMOL/L (98-107); CHOLESTEROL LEVEL 263 MG/DL (<200); CHOLESTEROL RISK RATIO 4.71 (<5); CREATININE FOR GFR 1.12 MG/DL (0.70-1.30); GLOMERULAR FILTRATION RATE > 60.0 (>56); GLUCOSE, FASTING 83 MG/DL (60-100); HDL CHOLESTEROL 55.8 MG/DL (>40); NON-HDL-C 207.2 MG/DL; POTASSIUM SERUM 5.3 MMOL/L (3.5-5.1); SODIUM LEVEL 141 MMOL/L (136-145); TOTAL PROTEIN 7.5 G/DL (5.7-8.2); TRIGLYCERIDES LEVEL 171 MG/DL (<150)
== END ==
LOC: M WUC 08:43
PROVIDERS: ATTEND Physician Assistant Medical
DX: Z00.00 Encounter for general adult medical examination without abnormal findings (principal); Z13.6 Encounter for screening for cardiovascular disorders; E78.00 Pure hypercholesterolemia, unspecified; G47.33 Obstructive sleep apnea (adult) (pediatric); Z12.5 Encounter for screening for malignant neoplasm of prostate
CPT/HCPCS: 36415; 80053; 80061; 85025; G0103